=== PATIENT | male | born 1985 | race African-American/Black ===

== ENCOUNTER 2018-01-31 23:06 | Emergency (ER) | payer SELFPAY ==
[~2018-01-31] VITALS: Ht 177.8 cm; Wt 56.7 kg
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
[2018-01-31 23:37] LABS: BASO # 0.1 x10^3/uL (0.0-0.2); BASO % 1 % (0-3); EOS # 0.1 x10^3/uL (0.0-0.7); EOS % 1 % (0-3); HEMATOCRIT 40.1 % (39.0-53.0); HEMOGLOBIN 13.5 g/dL (13.0-17.5); LYMPH # 2.3 x10^3/uL (1.0-4.8); LYMPH % 23 % (24-48); MEAN CORPUSCULAR HEMOGLOBIN 31 pg (25-35); MEAN CORPUSCULAR HGB CONC 34 g/dL (31-37); MEAN CORPUSCULAR VOLUME 92 fL (79-100); MONO # 0.5 x10^3/uL (0.0-1.1); MONO % 5 % (0-9); NEUT % 71 % (31-73); PLATELET COUNT 216 x10^3/uL (140-400); RED BLOOD COUNT 4.36 x10^6/uL (4.30-5.70); RED CELL DISTRIBUTION WIDTH 13.3 % (11.5-14.5)
[2018-01-31] MEDS ORDERED: DIPHTH,PERTUSS(ACELL),TET TOX 0.5 ML DISP.SYRIN. VAX IM ONE (23:45)
[2018-01-31 23:48] LABS: CALCIUM 9.1 mg/dL (8.5-10.1); CREATININE 1.4 mg/dL (0.7-1.3); GFR 70.6; POTASSIUM 3.9 mmol/L (3.5-5.1)
[2018-01-31 23:54] LABS: ALBUMIN 3.8 g/dL (3.4-5.0); ALBUMIN/GLOBULIN RATIO 1.1 (1.0-1.7); TOTAL BILIRUBIN 0.4 mg/dL (0.2-1.0); TOTAL PROTEIN 7.3 g/dL (6.4-8.2)
[2018-02-01] MEDS ORDERED: IV NORMAL SALINE 1000ML BAG 1,000 ML IV SCH
--- NOTE | 2018-02-01 00:41 | RAD ---
PQRS Compliance statement: One or more of the following individualized dose reduction techniques were utilized for this examination: 1. Automated exposure control. 2. Adjustment of the mA and/or kV according to patient size. 3. Use of iterative reconstruction technique. Indication:AMS TECHNIQUE: CT head without IV contrast COMPARISON:None FINDINGS: no pathologic extra-axial or intra-axial fluid collection. The ventricles and basal cisterns are within normal limits. No acute intracranial bleed. No focal loss of reyes-white differentiation. Orbits within normal limits. No suspicious calvarial lesion. Visualized paranasal sinuses and mastoid air cells are clear. IMPRESSION: No acute intracranial process. If concern for acute ischemic stroke is high, please consider MRI brain. Electronically signed by: Issa Thornton DO (02/01/2018 12:37 AM) [facility]
[2018-02-01 00:52] LABS: BILIRUBIN,URINE SMALL (NEG); CLARITY,URINE CLEAR; COLOR,URINE YELLOW; NITRITE,URINE NEGATIVE (NEG); PH,URINE 6.5; PROTEIN,URINE 30 mg/dL (NEG-TRACE)
[2018-02-01 01:01] LABS: AMPHETAMINE/METHAMPHETAMINE NEG (NEG); BARBITURATES NEG (NEG); BENZODIAZEPINES NEG (NEG); CANNABINOIDS POS (NEG); COCAINE POS (NEG); METHADONE NEG (NEG); OPIATES NEG (NEG); PHENCYCLIDINE POS (NEG)
[2018-02-01 01:11] LABS: BACTERIA,URINE FEW /HPF (0-FEW); HYALINE CASTS, URINE MODERATE /HPF; RBC,URINE OCC /HPF (0-2); SQUAMOUS EPITHELIAL CELL,UR FEW /LPF
[2018-02-01] MEDS ORDERED: LIDOCAINE 1%/EPI 1:100,000 20 ML VIAL. ONE (03:42)
[2018-02-01] MEDS ORDERED: LIDOCAINE 1% PF 2 ML VIAL. INJ ONE (03:45)
[2018-02-01] MEDS ORDERED: LIDOCAINE 1%/EPI 1:100,000 20 ML VIAL. INJ ONE (04:00)
--- NOTE | 2018-02-01 04:23 | RAD ---
PROCEDURE: PORTABLE CHEST 1V CLINICAL INDICATION: PAIN COMPARISON: None FINDINGS: No pneumothorax identified. Cardiac and mediastinal contours unremarkable. No pulmonary consolidation or acute airspace disease. No acute osseous abnormalities identified. IMPRESSION: No pulmonary consolidation or acute airspace disease. Electronically signed by: Issa Thornton DO (02/01/2018 4:19 AM) [facility]
--- NOTE | 2018-02-01 04:59 | RAD ---
Indication:LACERATION TECHNIQUE: 3 views of the left shoulder COMPARISON:None FINDINGS/ impression: No acute fracture or dislocation. Visualized left lung is clear. No arthritic changes. Electronically signed by: Issa Thornton DO (02/01/2018 4:55 AM) [facility]
[2018-02-01 05:00] VITALS: BP 126/87
--- NOTE | 2018-02-01 06:14 | EKG ---
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
--- NOTE | 2018-02-01 06:17 | EKG ---
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
== END 2018-02-01 05:45 | disposition home or self-care (01) ==
LOC: ER 23:06
DX: S41.012A Laceration without foreign body of left shoulder, initial encounter (principal); R41.82 Altered mental status, unspecified; F12.10 Cannabis abuse, uncomplicated; F14.10 Cocaine abuse, uncomplicated; F19.10 Other psychoactive substance abuse, uncomplicated; N28.9 Disorder of kidney and ureter, unspecified; R94.31 Abnormal electrocardiogram [ECG] [EKG]; W25.XXXA Contact with sharp glass, initial encounter; Y93.89 Activity, other specified; Y92.524 Gas station as the place of occurrence of the external cause; Y99.8 Other external cause status
CPT/HCPCS: 12001; 36415; 70450; 71045; 73030; 80053; 80307; 81001; 82550; 83605; 83690; 84145; 84484; 85025; 87040; 90471; 90715; 93005; 96360; 99285; G0480; J3490; J7030; G0479

== ENCOUNTER 2018-03-13 23:58 | Emergency (ER) | payer MEDICAID ==
[~2018-03-13] VITALS: Ht 172.7 cm; Wt 68.9 kg
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
[2018-03-14 03:10] VITALS: BP 122/78
== END 2018-03-14 03:31 | disposition home or self-care (01) ==
LOC: ER 23:58
DX: F10.10 Alcohol abuse, uncomplicated (principal); Y90.9 Presence of alcohol in blood, level not specified; F14.10 Cocaine abuse, uncomplicated; F16.10 Hallucinogen abuse, uncomplicated; F12.10 Cannabis abuse, uncomplicated; R41.82 Altered mental status, unspecified; Z98.890 Other specified postprocedural states
CPT/HCPCS: 82962; 99283

== ENCOUNTER 2020-07-15 12:58 | Emergency (ER) | payer SELFPAY ==
[~2020-07-15] VITALS: Ht 177.8 cm; Wt 59.0 kg
[~2020-07-15 12:58] MED LIST: OXAP600T2 PO
[2020-07-15 13:40] VITALS: BP 142/96
--- NOTE | 2020-07-15 13:47 | PHYS DOC ---
Past Medical History Past Medical History: Other Additional Past Medical Histor: LEFT INGUINAL HERNIA, PCP, Cocaine, and Marijuana abuse Past Surgical History: Other Additional Past Surgical Histo: HERNIA REPAIR Smoking Status: Current Every Day Smoker Alcohol Use: Occasionally Drug Use: Marijuana, Methamphetamine, Phencyclidine General Adult EDM: Chief Complaint: left inguinal hernia problem HPI: HPI: Patient is a 35 year old male who presented to ER for evaluation of left inguinal hernia. Patient said he had left inguinal hernia surgery when he was 5-year-old. He was doing fine, until 6 years ago he started having the hernia again. Patient said it has been coming in and out. Patient said whenever he lifts anything heavy of cough or eating hernia came out, patient said whenever he relaxed smoking marijuana then it came back in. Patient wants to have surgery done today to fix the problem. Patient denies any nausea vomiting, no fever, no testicular pain, no testicular injury. Review of Systems: Review of Systems: Constitutional: Denies fever or chills. [] Eyes: Denies change in visual acuity. [] HENT: Denies nasal congestion or sore throat. [] Respiratory: Denies cough or shortness of breath. [] Cardiovascular: Denies chest pain or edema. [] GI: Denies abdominal pain, nausea, vomiting, bloody stools or diarrhea. Positive for left inguinal hernia : Denies dysuria. [] Musculoskeletal: Denies back pain or joint pain. [] Integument: Denies rash. [] Neurologic: Denies headache, focal weakness or sensory changes. [] Endocrine: Denies polyuria or polydipsia. [] Lymphatic: Denies swollen glands. [] Psychiatric: Denies depression or anxiety. [] Heart Score: C/O Chest Pain: N/A Risk Factors: Risk Factors: DM, Current or recent (<one month) smoker, HTN, HLP, family history of CAD, obesity. Risk Scores: Score 0 - 3: 2.5% MACE over next 6 weeks - Discharge Home Score 4 - 6: 20.3% MACE over next 6 weeks - Admit for Clinical Observation Score 7 - 10: 72.7% MACE over next 6 weeks - Early Invasive Strategies Allergies: Allergies: Allergies Coded Allergies Type Severity Reaction Last Updated Verified No Known Drug Allergies 12/19/15 No Physical Exam: PE: Constitutional: Well developed, well nourished, no acute distress, non-toxic appearance. [] HENT: Normocephalic, atraumatic, Eyes: PERRLA, EOMI, conjunctiva normal, no discharge. [] Cardiovascular:Heart rate regular rhythm, no murmur [] Lungs & Thorax: Bilateral breath sounds clear to auscultation [] Abdomen: Bowel sounds normal, soft, no tenderness, no masses, no pulsatile masses. There was a large palpable inguinal hernia on left side, extended into left scrotum area. It was reduced easily without any problem. Skin: Warm, dry, no erythema, no rash. [] Back: No tenderness, no CVA tenderness. [] Extremities: No tenderness, no cyanosis, no clubbing, ROM intact, no edema. [] Neurologic: Alert and oriented X 3, normal motor function, normal sensory function, no focal deficits noted. [] Psychologic: Affect normal, judgement normal, mood normal. [] Current Patient Data: Vital Signs: Vital Signs Date Time Temp Pulse Resp B/P (MAP) Pulse Ox O2 Delivery O2 Flow Rate FiO2 07/15/20 13:34 98.2 71 18 142/96 (111) 97 Room Air 98.2 EKG: EKG: [] Radiology/Procedures: Radiology/Procedures: [] Course & Med Decision Making: Course & Med Decision Making Pertinent Labs and Imaging studies reviewed. (See chart for details) Patient is a 35-year-old male with left inguinal hernia that he been doing with for the last 6-year, the hernia is reducible without any problem. There is no emergency surgery needed today. Patient will be discharged home, he was given the phone number of the general surgeon, advised to follow-up with a general surgeon for outpatient evaluation and treatment. Dragon Disclaimer: [place] Disclaimer: This electronic medical record was generated, in whole or in part, using a voice recognition dictation system. Departure Departure Impression: Primary Impression: Inguinal hernia of left side without obstruction or gangrene Disposition: 01 DC HOME SELF CARE/HOMELESS Condition: STABLE Referrals: NO PCP (PCP) HA CEVALLOS MD Please call this General surgeon for outpatient evaluation and treatment. Patient Instructions: Inguinal Hernia, Adult Additional Instructions: Thank you for visiting our Emergency Department. We appreciate you trusting us with your care. If any additional problems come up don't hesitate to return to visit us. Please follow up with your primary care provider so they can plan a dditional care if needed and know about the problem that you had. If symptoms worsen come back to the Emergency Department. Any concerning symptoms that start such as chest pain, shortness of air, weakness or numbness on one side of the body, running high fevers or any other concerning symptoms return to the ER. MADDY BEDOLLA DO Jul 15, 2020 13:47
== END 2020-07-15 14:17 | disposition home or self-care (01) ==
LOC: ER 12:58
DX: F17.200 Nicotine dependence, unspecified, uncomplicated (principal); F12.90 Cannabis use, unspecified, uncomplicated; F19.90 Other psychoactive substance use, unspecified, uncomplicated; F14.90 Cocaine use, unspecified, uncomplicated; Z98.890 Other specified postprocedural states
CPT/HCPCS: 99281